=== PATIENT | female | born 1975 | race Caucasian/White ===

== ENCOUNTER → 2016-10-17 | Outpatient (CLI) | payer OTHER ==
--- NOTE | 2016-10-17 15:17 | US ---
Right Breast Ultrasound History: Breast pain and fullness in a 41-year-old lactating female. Technique: Longitudinal and transverse images were obtained utilizing a 15 MHz transducer. Findings: Sonographic interrogation of the area of concern at the 12 o'clock position 5 cm from the n ipple demonstrates prominent fibroglandular elements consistent with the history of nursing. No fluid collection is identified to suggest abscess formation. No solid or cystic mass is seen.. Impression: Benign breast ultrasound, BI-RADS 2.. Recommendation: Continued clinical follow-up is recommended with routine mammographic screening to be scheduled once the patient is no longer nursing.. A verbal report was given to the patient. Also, a preliminary report was called to the patient's [facility] provider. [facility] will send a result letter to the patient.
== END ==
LOC: FIMAGING 14:35
PROVIDERS: ATTEND Midwife
DX: N64.4 Mastodynia (principal)